=== PATIENT | female | born 1960 | race Caucasian/White ===

== ENCOUNTER 2021-04-07 07:38 | Emergency (ER) | payer BC ==
[~2021-04-07] VITALS: Ht 165.1 cm; Wt 45.4 kg
[2021-04-07 08:53] LABS: BASOPHILS ABSOLUTE AUTO 0.06 K/mm3 (0.00-0.23); BASOPHILS PERCENT AUTO 1 % (0-2); EOSINOPHILS ABSOLUTE AUTO 0.05 K/mm3 (0.00-0.68); EOSINOPHILS PERCENT AUTO 1 % (0-6); Hematocrit 42.9 % (33.0-51.0); Hemoglobin 14.6 g/dL (11.5-16.0); IMMATURE GRAN ABSOLUTE AUTO 0.07 K/mm3 (0.00-0.10); IMMATURE GRAN PERCENT AUTO 1 % (0-1); LYMPHOCYTES ABSOLUTE AUTO 1.87 K/mm3 (0.84-5.20); LYMPHOCYTES PERCENT AUTO 32 % (21-46); MONOCYTES ABSOLUTE AUTO 0.62 K/mm3 (0.16-1.47); MONOCYTES PERCENT AUTO 10 % (4-13); Mean Corpuscular HGB 34.1 pg (26.0-34.0); Mean Corpuscular Volume 100 fL (80-100); Mean Platelet Volume 9.8 fL (9.1-12.4); NEUTROPHILS ABSOLUTE AUTO 3.27 K/mm3 (1.96-9.15); NEUTROPHILS PERCENT AUTO 55 % (41-73); Platelet Count 241 K/mm3 (150-400); RDW Coefficient Variation 12.4 % (11.7-14.2); RDW Standard Deviation 46.2 fL (35.1-46.3); Red Blood Cell Count 4.28 M/mm3 (3.80-5.20); White Blood Cell Count 5.94 K/mm3 (4.00-11.30)
[2021-04-07 09:11] LABS: Alanine Aminotransfer (ALT/SGP 118 U/L (12-78); Albumin/Globulin Ratio 0.7 (0.8-1.8); Alk Phos 102 U/L (50-136); Anion Gap 10 mmol/L (6-16); Aspartate Aminotrans (AST/SGOT 201 U/L (12-37); Bilirubin, Total 0.5 mg/dL (0.1-1.0); Blood Urea Nitrogen 5 mg/dL (8-24); Bun/Creatinine Ratio 9.3 (12.0-20.0); CO2, Blood 25 mmol/L (21-32); Calcium, Blood 9.3 mg/dL (8.5-10.1); Chloride, Blood 103 mmol/L (98-108); Creatinine, Blood 0.54 mg/dL (0.40-1.00); Ethanol (Alcohol), Blood, Med 71 mg/dL; Globulin, Blood 4.4 g/dL (2.2-4.0); Glomerular Filtration Rate >60 (60-); Glucose, Blood 90 mg/dL (70-99); Magnesium, Blood 1.5 mg/dL (1.6-2.4); Potassium, Blood 3.2 mmol/L (3.5-5.5); Sodium, Blood 138 mmol/L (136-145); Total Protein, Blood 7.4 g/dL (6.4-8.2)
[2021-04-07] MEDS ORDERED: PROM25 PO (09:40)
[2021-04-07] MEDS ORDERED: CHLO25 PO (09:40)
== END 2021-04-07 10:05 | disposition home or self-care (01) ==
LOC: ER 07:38
PROVIDERS: Emergency Medicine
DX: R41.82 Altered mental status, unspecified (principal); F10.10 Alcohol abuse, uncomplicated; Y90.3 Blood alcohol level of 60-79 mg/100 ml; F17.200 Nicotine dependence, unspecified, uncomplicated; Z91.013 Allergy to seafood; Z88.6 Allergy status to analgesic agent
CPT/HCPCS: 36415; 70450; 71046; 80053; 83690; 83735; 85025; 93005; 93010; 99285-25; A9270; G0480

== ENCOUNTER → 2022-05-29 | Outpatient (CLI) | payer OTHER ==
[~2022-05-29] MED LIST: CHLO25 PO; PROM25 PO
[2022-05-30 15:10] LABS: HPV 16 Negative (Negative); HPV 18 Negative (Negative); HPV OTHER HR TYPES Negative (Negative)
== END | disposition home or self-care (01) ==
LOC: LAB SHORT 14:30
PROVIDERS: Obstetrics & Gynecology
DX: Z12.4 Encounter for screening for malignant neoplasm of cervix (principal)
CPT/HCPCS: 87624; G0145

== ENCOUNTER 2024-04-23 09:05 | Day surgery (SDC) | payer MEDICARE, OTHER ==
[~2024-04-23] VITALS: Ht 165.1 cm; Wt 59.4 kg
[~2024-04-23 09:05] MED LIST changes: +Lactated Ringer's 1,000 ML IV ONE; +propofoL 50 ML IV ONE
[2024-04-23] MEDS ORDERED: Lactated Ringer's 1,000 ML IV ONE (10:56)
[2024-04-23 12:06] VITALS: BP 95/57
== END 2024-04-23 12:08 | disposition home or self-care (01) ==
LOC: ORSCSDS 09:05
PROVIDERS: Surgery
PROC: 0DBM8ZX Excision of Descending Colon, Via Natural or Artificial Opening Endoscopic, Diagnostic (ICD-10-PCS; principal; 2024-04-23 10:30)
DX: Z12.11 Encounter for screening for malignant neoplasm of colon (principal); D12.4 Benign neoplasm of descending colon; G30.1 Alzheimer's disease with late onset; F02.80 Dementia in other diseases classified elsewhere, unspecified severity, without behavioral disturbance, psychotic disturbance, mood disturbance, and anxiety; F17.210 Nicotine dependence, cigarettes, uncomplicated
CPT/HCPCS: 88305; J2704; J7120